=== PATIENT | female | born 1955 | race Caucasian/White ===

== ENCOUNTER 2022-06-21 00:48 | Emergency (ER) | payer MEDICARE, SELFPAY ==
--- OUTSIDE RECORDS SUMMARY | 2022-06-21 01:18 | XMS_ITS | Continuity of Care Document ---
:1955 Author Organization [facility] Address [address] [place] [address]- Care Team Providers Name Role Phone Shante Lewis MD Primary Care Physician [phone] [id number] Date(s): 03/13/22 - 04/12/22 [facility] [address] [place], [place] [address] Allergies, Adverse Reactions, Alerts No Known Allergies Immunizations Given and Recorded Vaccine Date Status Refusal Reason tetanus-diphtheria toxoids (Td) 11/12/05 Given Medications Celexa 10 mg oral tablet 1 tablet = 10 mg, By Mouth, Daily, # 30 tablet, 0 Refills, Maintenance, 01/04/14 9:57:31, Tablet Start Date: 01/04/14 Status: Orderedlevothyroxine 100 mcg (0.1 mg) oral capsule 1, By Mouth, Daily, 30, 1, 1, 11/03/07 13:11:26, Print RUFINO Number, [id number], Constant Indicator Start Date: 11/03/07 Stop Date: 01/02/08 Status: OrderedMedrol Dosepak 4 mg oral tablet 1 pack/packet, By Mouth, Once, # 21 tablet, 0 Refills, Soft Stop, 03/26/14 9:07:27, Tablet, 1 pack/packet By Mouth Once Start Date: 03/26/14 Status: OrderedMedrol Dosepak 4 mg oral tablet 1 pack/packet, By Mouth, Once, # 21 tablet, 0 Refills, Soft Stop, 03/02/14 9:10:46, Tablet Start Date: 03/02/14 Status: Ordered Problem List Condition Confirmation Course Effective Dates Status Health Stat us Informant Depression Confirmed Active Hypothyroidism Confirmed Active Migraine Confirmed Active Social History Social History Type Response Smoking Status Former smoker entered on: 03/26/14 Sex Patient Care team information PersonnelName: Shante Lewis MD Address: Address: [address] [place] [id number]
--- OUTSIDE RECORDS SUMMARY | 2022-06-21 01:18 | XMS_ITS | Continuity of Care Document ---
:1955 Author Organization [facility] Address [address] [place] [address], [address] [address]- Care Team Providers Name Role Phone Debbie BALDWIN, Shante Blanchard Primary Care Physician Encounter 07/09/21 - 07/16/21 [facility] [address], [address] [address] Attending Physician: Chelo Perez MD Admitting Physician: Chelo Perez MD Referring Physician: Chelo Perez MD Allergies, Adverse Reactions, Alerts Substance Reaction Severity Status NKA Active Immunizations Given and Recorded Vaccine Date Status Refusal Reason tetanus-diphtheria toxoids (Td) 11/12/05 Given Medications Celexa 10 mg oral tablet 1 tablet = 10 mg, By Mouth, Daily, # 30 tablet, 0 Refills, Maintenance, 01/04/14 9:57:31, Tablet Start Date: 01/04/14 Status: Orderedlevothyroxine 100 mcg (0.1 mg) oral capsule 1, By Mouth, Daily, 30, 1, 1, 11/03/07 13:11:26, Print RUFINO Number, [id number], Constant Indicator Start Date: 11/03/07 Stop Date: 01/02/08 Status: OrderedMedrol Dosepak 4 mg oral tablet 1 pack/packet, By Mouth, Once, # 21 tablet, 0 Refills, Soft Stop, 03/26/14 9:07:27, Tablet, 1 pack/packet By Mouth Once Start Date: 03/26/14 Status: OrderedMedrol Dosepak 4 mg oral tablet 1 pack/packet, By Mouth, Once, # 21 tablet, 0 Refills, Soft Stop, 03/02/14 9:10:46, Tablet Start Date: 8/29/14 Status: Ordered Problem List Condition Effective Dates Status Health Status Informant Depression(Confirmed) Active Hypothyroidism(Confirmed) Active Migraine(Confirmed) Active Social History Social History Type Response Smoking Status Former smoker entered on: 03/26/14 Sex
--- OUTSIDE RECORDS SUMMARY | 2022-06-21 01:18 | XMS_ITS | Continuity of Care Document ---
:1955 Author Organization [facility] Address [address] [place] [address]- Care Team Providers Name Role Phone Shante Lewis MD Primary Care Physician Encounter [facility] Date(s): 05/08/22 - 05/15/22 [facility] [address] [place] [address]- Encounter Diagnosis Major depressive disorder in partial remission (Discharge Diagnosis) - 05/08/22 Mild intermittent asthma (Discharge Diagnosis) - 05/08/22 Allergic rhinitis (Discharge Diagnosis) - 05/08/22 Gastroesophageal reflux disease without esophagitis (Discharge Diagnosis) - 05/08/22 Osteopenia (Discharge Diagnosis) - 05/08/22 Attending Physician: Shante Lewis MD Allergies, Adverse Reactions, Alerts No Known Allergies Immunizations Given and Recorded Vaccine Date Status Refusal Reason tetanus-diphtheria toxoids (Td) 05/08/22 Given tetanus-diphtheria toxoids (Td) 11/12/05 Given tetanus-diphtheria toxoids (Td) 07/05/05 Recorded pneumococcal 23-valent vaccine 05/08/22 Given influenza virus vaccine, inactivated 03/17/22 Recorded influenza virus vaccine, inactivated 03/26/21 Recorded influenza virus vaccine, inactivated 03/27/20 Recorded influenza virus vaccine, inactivated 04/05/19 Recorded influenza virus vaccine, inactivated 03/25/18 Recorded influenza virus vaccine, inactivated 05/07/17 Recorded influenza virus vaccine, inactivated 04/24/17 Recorded influenza virus vaccine, inactivated 04/16/16 Recorded influenza virus vaccine, inactivated 04/18/13 Recorded influenza virus vaccine, inactivated 04/27/08 Recorded [id number] bivalent booster vax 03/17/22 Recorde d SARS-CoV-2 (COVID-19) mRNA-1273 vaccine 10/09/21 Recorded SARS-CoV-2 (COVID-19) mRNA-1273 vaccine 05/05/21 Recorded SARS-CoV-2 (COVID-19) mRNA-1273 vaccine 10/21/20 Recorded SARS-CoV-2 (COVID-19) mRNA-1273 vaccine 09/23/20 Recorded pneumococcal 13-valent vaccine 04/16/21 Recorded zoster vaccine, inactivated 07/02/20 Recorded zoster vaccine, inactivated 03/27/20 Recorded Zoster Vaccine Live 07/02/16 Recorded tetanus/diphtheria/pertussis, acel(Tdap) 06/15/12 Recorde d Medications Albuterol (Eqv-ProAir HFA) Inhalation, Every 6 hours, 0 Refills, Maintenance, 05/08/22 9:53:00 EDT, Partial fill upon patient request if the prescription is for a schedule II opioid drug. Start Date: 05/08/22 Status: OrderedCelexa 10 mg oral tablet 1 tablet = 10 mg, By Mouth, Daily, # 30 tablet, 0 Refills, Maintenance, 01/04/14 9:57:31, Tablet Start Date: 01/04/14 Status: Orderedlevothyroxine 100 mcg (0.1 mg) oral capsule 1, By Mouth, Daily, 30, 1, 1, 11/03/07 13:11:26, Print RUFINO Number, [id number], Constant Indicator Start Date: 11/03/07 Stop Date: 01/02/08 Status: OrderedLorazepam 0 Refills, Maintenance, 05/08/22 9:53:00 EDT, Partial fill upon patient request if the prescription is for a schedule II opioid drug. Start Date: 05/08/22 Status: OrderedLORazepam 0.5 mg oral tablet 1 tablet = 0.5 mg, By Mouth, 2 times a day, PRN as needed for anxiety, 0 Refills, Maintenance, 05/08/22 9:58:00 EDT, Tablet, Partial fill upon patient request if the prescription is for a schedule II opioid drug. Start Date: 05/08/22 Status: OrderedMedrol Dosepak 4 mg oral tablet 1 pack/packet, By Mouth, Once, # 21 tablet, 0 Refills, Soft Stop, 03/26/14 9:07:27, Tablet, 1 pack/packet By Mouth Once Start Date: 03/26/14 Status: OrderedMedrol Dosepak 4 mg oral tablet 1 pack/packet, By Mouth, Once, # 21 tablet, 0 Refills, Soft Stop, 03/02/14 9:10:46, Tablet Start Date: 03/02/14 Status: Orderedmeloxicam 15 mg oral tablet 1 tablet = 15 mg, By Mouth, Daily, # 30 tablet, 0 Refills, Maintenance, 05/08/22 9:58:00 EDT, Tablet, Partial fill upon patient request if the prescription is for a schedule II opioid drug. Start Date: 05/08/22 Status: OrderedSertraline By Mouth, Daily, 0 Refills, Maintenance, 05/08/22 9:53:00 EDT, Partial fill upon patient request if the prescription is for a schedule II opioid drug. Start Date: 05/08/22 Status: Orderedsertraline 50 mg oral tablet 1 tablet = 50 mg, By Mouth, Daily, # 30 tablet, 0 Refills, Maintenance, 05/08/22 9:58:00 EDT, Tablet, Partial fill upon patient request if the prescription is for a schedule II opioid drug. Start Date: 05/08/22 Status: OrderedSynthroid 0.088 mg oral tablet 1 tablet = 88 mcg, By Mouth, Daily, # 30 tablet, 0 Refills, Maintenance, 05/08/22 9:58:00 EDT, Tablet, Partial fill upon patient request if the prescription is for a schedule II opioid drug. Start Date: 05/08/22 Status: Ordered Problem List Condition Confirmation Course Effective Dates Status Health I nformant Status Carotid bruit Confirmed 02/06/15 Active COVID-19 Confirmed 08/07/20 Active Depression Confirmed Active Depressive disorder Confirmed 04/28/08 Active Family history of Confirmed 04/28/08 Active kidney disease Gastroesophageal Confirmed 11/08/17 Active reflux disease without esophagitis Hypothyroidism Confirmed Active Hypothyroidism Confirmed 04/28/08 Active Migraine Confirmed Active Mild intermittent Confirmed 04/27/20 Active asthma Obese class I Confirmed Active Diagnosis Diagnosis Type Effective Health Clinical Informant Dates Status Service Major depressive Discharge 05/08/22 disorder in partial Diagnosis remission Allergic rhinitis Discharge 05/08/22 Diagnosis Gastroesophageal Discharge 05/08/22 reflux disease without Diagnosis esophagitis Osteopenia Discharge 05/08/22 Diagnosis Mild intermittent Discharge 05/08/22 asthma Diagnosis Vital Signs Most recent to oldest [Reference Range]: 1 Height 162.56 cm (05/08/22 9:47 AM) Weight 85.2 kg (05/08/22 9:47 AM) Oxygen Saturation [94-100 %] 97 % (05/08/22 9:47 AM) Pulse Rate [55-90 bpm] 85 bpm (05/08/22 9:47 AM) Body Mass Index [18.5-24.99 kg/m2] 32.24 kg/m2 *>HHI* (05/08/22 9:47 AM) Blood Pressure [90-138/55-84 mm Hg] 107/72 mm Hg (05/08/22 9:47 AM) Blood pressure sites Arm, right (05/08/22 9:47 AM) Social History Social History Type Response Smoking Status Former smoker entered on: 03/26/14 Sex Note Paty Hillman: PERFORM, SIGN, VERIFY Event Display: Patient Education/Instruction Authored Date: [id number] [facility] Clinical Summary Name STEPHEN VILLAVICENCIO Age 66 Years 1955 PCP Debbie BALDWIN, Shante Blanchard PCP Visit Date 05/08/2022 09:43:00 Additional Instructions: Scheduled Appointments?? Future Appointments ?No Future Appointments Scheduled Follow-Up Instructions ?? Diagnosis Depression, unspecified; Hypothyroidism, unspecified Medications: Please continue your medications until treatment is completed or stopped by your provider. Discuss any questions related to medications with your provider. Medications to Continue with No Changes These medications were not printed or sent to your pharmacy Albuterol (Albuterol (Eqv-ProAir HFA)) Inhalation every 6 hours. Next Dose: Citalopram (Celexa 10 mg oral tablet) 1 tab(s) Oral Daily. Next Dose: Levothyroxine (levothyroxine 100 mcg (0.1 mg) oral capsule) 1 Oral Daily for 30 Days. Refills: 1. Next Dose: Levothyroxine (Synthroid 0.088 mg oral tablet) 1 tab(s) Oral Daily. Next Dose: Lorazepam Next Dose: Lorazepam (LORazepam 0.5 mg oral tablet) 1 tab(s) Oral twice a day as needed as needed for anxiety. Next Dose: Meloxicam (meloxicam 15 mg oral tablet) 1 tab(s) Oral Daily. Next Dose: MethylPREDNISolone (Medrol Dosepak 4 mg oral tablet) 1 pack/packet Oral once. Refills: 0. Next Dose: MethylPREDNISolone (Medrol Dosepak 4 mg oral tablet) 1 pack/packet Oral once. Refills: 0. Next Dose: Sertraline Oral Daily. Next Dose: Sertraline (sertraline 50 mg oral tablet) 1 tab(s) Oral Daily. Next Dose: Allergy Info:?? NKA Medications Given This Visit Medication Dose Route Pneumococcal 23-Valent Vaccine (pneumococcal 23-valent (Adult) vacc) 0.5 mL Intramuscular Future Orders ?No future orders Vital Signs Height 162.56 cm Weight 85.2 kg BMI 32.24 kg/m2 Blood Pressure 107 mm Hg/72 mm Hg Temperature Pulse Rate 85 bpm Respiratory Rate 02 Sat Mode of Delivery 97 %/ You can now view a summary of your hospital visit from the comfort of your home through a free online portal called [email or web address]. [email or web address] is a website that allows you to securely view yourmedical information including discharge summary, medications and follow-up visits. ??You can also send a secure electronic message to your doctor???s office to request appointments, renew medications or just ask a question. You can enroll at [email or web address] or register during your next office visit. Disclaimer:?? The information provided is of a general nature and is intended to be used in conjunction with the recommendations and advice of your health care practitioner. ??Every effort has been made to ensure that the information provided is accurate and complete at the time it is provided to you however, as your needs change, or, as new ??information becomes available, different or additional instructions may be required. If you have questions, please consult with your primary care provider or pharmacist, as appropriate.??This information is not intended to serve as substitution for assessment and evaluation by a qualified health care provider. If you do not have a primary care provider, you may find a [facility] provider by calling [facility] at [phone]. For information about the plan of care including goals and instructions for your diagnosis, please see the patient education orders section of this document. Patient Education Materials?? The content of this educational material or handout may have been modified, supplemented, or adaptedfrom its original content and format to support your individualized medical care. Patient Care team information Care Team PersonnelName: Shante Lewis MD Position: [facility] Primary Care Physician Member Role: PCP Address: Address: [address] [place] [address]- Care Team Related PersonsName: EDITH VILLAVICENCIO Address: home [address] [address]
--- OUTSIDE RECORDS SUMMARY | 2022-06-21 01:18 | XMS_ITS | Continuity of Care Document ---
:1955 Author Organization [facility] Address [address] [place] [address]- Care Team Providers Name Role Phone Shante Lewis MD Primary Care Physician [phone] Encounter [facility] Date(s): 05/05/22 - 06/06/22 [facility] [address] [place] [address]- Attending Physician: Shante Lewis MD Allergies, Adverse [...] Recorded influenza virus vaccine, inactivated 04/27/08 Recorded [id number] bivalent booster vax 03/17/22 Recorde d SARS-CoV-2 [...] 1, 1, 11/03/07 13:11:26, Print RUFINO Number, [id number], Constant Indicator Start Date: 11/03/07 Stop Date: [...] Active asthma Obese class I Confirmed Active Social History Social History Type Response Smoking Status Former smoker entered on: 03/26/14 Sex Patient Care team information Care Team PersonnelName: Shante Lewis MD Position: [facility] Primary Care Physician Member Role: PCP Address: [facility] [place] [address]- Care Team Related PersonsName: VILLAVICENCIOEDITH Address: home [address] [address]
--- OUTSIDE RECORDS SUMMARY | 2022-06-21 01:18 | XMS_ITS | Continuity of Care Document ---
:1955 Author Organization [facility] Address [address] [place] [address]- Care Team Providers Name Role Phone Debbie BALDWIN, Shante Blanchard Primary Care Physician [phone] Encounter [facility] Date(s): 05/05/22 - 06/04/22 [facility] [address] [place], [place] [address] Allergies, Adverse Reactions, Alerts No Known [...] Recorded influenza virus vaccine, inactivated 04/27/08 Recorded [id number] bivalent booster vax 03/17/22 Recorde d SARS-CoV-2 [...] 1, 1, 11/03/07 13:11:26, Print RUFINO Number, [id number], Constant Indicator Start Date: 11/03/07 Stop Date: [...] Care Team PersonnelName: Shante Lewis MD Position: [facility] Primary Care Physician Member Role: PCP Address: Address: [address] [place] [address]- Care Team Related PersonsName: EDITH VILLAVICENCIO Address: home [address] [address]
--- OUTSIDE RECORDS SUMMARY | 2022-06-21 01:18 | XMS_ITS | Continuity of Care Document ---
:1955 Author Organization [facility] Address [address] [place] [address], [address] [address]- Care Team Providers Name Role Phone Debbie BALDWIN, Shante Blanchard Primary Care Physician Encounter 06/24/20 - 07/01/20 [facility] [address], [address] [address] Attending Physician: Chelo Perez MD Admitting [...] 1, 1, 11/03/07 13:11:26, Print RUFINO Number, [id number], Constant Indicator Start Date: 11/03/07 Stop Date: [...] Date: 03/02/14 Status: Ordered Problem List Condition Effective Dates Status Health Status Informant Depression(Confirmed) Active Hypothyroidism(Confirmed) Active Migraine(Confirmed) Active Social History Social History Type Response Smoking Status Former smoker entered on: 03/26/14 Sex
== END 2022-06-21 02:36 | disposition left against medical advice (07) ==
PROVIDERS: Emergency Provider Emergency Medicine; PCP Pediatrics
DX: M79.646 Pain in unspecified finger(s) (principal)

== ENCOUNTER 2023-03-17 09:44 | Outpatient (AMB) | payer MEDICARE, SELFPAY ==
--- NOTE | 2023-03-17 09:53 | A.OFFVIS_ITS ---
Intake Vital Signs 03/17/23 09:54 Height 5 ft 4 in Weight 187 lb BMI 32.1 BP 116/74 Pulse 84 Pulse Source Pulse Oximeter Pulse Oximetry (%) 98 Oxygen Delivery Method Room Air Intake Visit Reasons: Chronic Bronchitis Clinical Research Nurse Required: No Crew Team Member: Crew Team Member offered & declined Accompanied by: Self / Same As Patient Allergies No Known Allergies Allergy (Verified 03/17/23 09:55) Medication List - Last Reconciled 03/17/23 by Letitia Anguiano LPN albuterol sulfate 90 mcg/actuation 2 puffs inhalation Q6H PRN cetirizine (Zyrtec) 10 mg PO DAILY PRN levothyroxine 88 mcg PO DAILY prednisone 40 mg PO DAILY sertraline 75 mg PO DAILY HPI Chronic Bronchitis HPI Details Vandana is a very pleasant 67 year old female, former smoker with a 10+ pack year history, quit 20 years ago, with underlying asthma. She was referred by PCP for pulmonary evaluation for chronic bronchitis. Over time, she reports worsening dyspnea with moderate exertion, such as hills and stairs. She reports having bronchitis 1-2 times per year for many years but after an episode in November 2021, she has had more episodes that have lasted longer. Her symptoms resolved after prednisone, albuterol and symbicort. She last had bronchitis two weeks ago with cough and wheezing, resolving with prednisone. She also reports significant allergy symptoms this time of year, with post nasal drip and itchy throat/eyes which she takes a daily antihistamine. She is unsure if she had asthma as a child but reports significant seasonal allergies and had allergen immunotherapy as a child. She reports mother with history of acute interstitial pneumonia, otherwise no pertinent family history. She denies any occupational exposures. Of note, she recently received her RSV and influenza vaccines. [facility] Social History (Updated 03/17/23 @ 09:57 by Letitia Anguiano LPN) Patient Tobacco Use Status: Former Tobacco user Tobacco use type: Cigarette Cigarette Packs Per Day: 0.5 Cigarettes Per Day: 10 Years Smoked: 20 Review of Systems Const Denies chills, Denies excessive sweating, Denies fever(s), Denies headache(s) and Denies night sweats Eyes Denies dry eyes, Denies irritation and Reports itchy eyes ENT Reports Normal hearing present, Denies headache(s), Denies nasal congestion, Denies nasal discharge, Denies post nasal drip and Denies sore throat Card Denies chest pain, Denies chest pain at rest, Denies chest pain with activity, Denies claudication, Denies leg edema, Denies orthopnea and Denies paroxysmal nocturnal dyspnea Resp Denies chest congestion, Denies excessive phlegm production, Denies pain on inspiration, Denies pain with cough and Denies stridor Musc Denies myalgias Neuro Reports Normal hearing present and Denies headache(s) Endo Denies excessive sweating Joe/Lymph Denies lymphadenopathy Aller/Immun Reports itchy eyes and Denies seasonal rhinorrhea Physical Exam Vital Signs: Last Vital Signs Pulse 84 03/17/23 09:54 BP 116/74 03/17/23 09:54 Pulse Ox 98 03/17/23 09:54 Oxygen Delivery Method Room Air 03/17/23 09:54 BMI result Body Mass Index 32.1 Const General: cooperative, healthy appearing, comfortable, no acute distress, well developed and alert Orientation/consciousness: patient oriented x3 Limitations: no limitations HEENT Head: Yes normal to inspection, Yes normocephalic and Yes atraumatic Ears: hearing grossly normal bilaterally and external ears normal Eyes General: appearance normal, both eyes and all related structures Eyelids: Yes eyelids normal Sclerae: sclerae normal EOM: EOMs intact bilaterally Neck Neck: Yes normal visual inspection and Yes no lymphadenopathy Lymphatic: no lymphadenopathy noted Chest Chest palpation & inspection: normal inspection of the chest Resp Effort & Inspection: normal respiratory effort, able to speak in complete sentences, no audible wheezes, no cough, no stridor, not tachypneic, no tripod positioning and no use of accessory muscles Auscultation: clear to auscultation bilaterally Cardio Jugular venous distension: no JVD Rate: regular rate Rhythm: regular rhythm Skin Other: warm, dry General skin exam: no rashes or lesions noted Neuro General: patient oriented x3 Cranial nerves: Yes Normal hearing present Cognition (Neuro): normal cognition Gait exam (Neuro): Normal gait present Extrem General: Yes normal to inspection, Yes capillary refill normal, Yes no clubbing, cyanosis or edema and Yes no pedal edema Psych Appearance: grossly normal and well kempt Speech and movement: Normal speech and movement present and Clear speech present Affect: normal affect Attitude: cooperative Thought process: Normal thought process present Thought content: Normal thought content present Insight: Good insight present (Psych) Judgement: Good judgement present (Psych) Assessment & Plan Assessment & Plan (1) Asthma: Code(s): J45.909 - Unspecified asthma, uncomplicated (2) Chronic bronchitis: Code(s): J42 - Unspecified chronic bronchitis (3) Environmental allergies: Code(s): Z91.09 - Other allergy status, other than to drugs and biological substances (4) Personal history of tobacco use: Code(s): Z87.891 - Personal history of nicotine dependence Plan Vandana presents for pulmonary evaluation of chronic bronchitis and asthma. Will send for PFT and labs to thoroughly assess. Prior CXR unremarkable, will send for chest CT given chronic cough and remote smoking history. Will empirically trial Breo. Inhaler technique reviewed and educated on importance of oral hygiene. Patient aware if insurance does not cover inhaler to contact the office. All questions were answered and patient is in agreement of plan. Will follow up in 6 weeks to review results and assess response to Breo. Orders: Orders Rast Allergen Today J45.909 - Unspecified asthma, uncomplicated, Z91.09 - Other allergy status, other than to drugs and biological substances Complete Blood Count Auto Diff Today Z91.09 - Other allergy status, other than to drugs and biological substances PFT pulmonary function test Today J45.909 - Unspecified asthma, uncomplicated CT chest wo IV con Today J42 - Unspecified chronic bronchitis, R06.09 - Other forms of dyspnea Medications: New fluticasone furoate-vilanterol 100-25 mcg/dose (Breo Ellipta) 1 inh inhalation DAILY 60 ea 3RF Coding Level of Care Code New Pt Level 4 (27901) Diagnoses Asthma J45.909 Chronic bronchitis J42 Environmental allergies Z91.09 Personal history of tobacco use Z87.891
[2023-03-17 09:54] VITALS: BP 116/74; PULSE 84; O2SAT 98; BMI 32.1
== END 2023-03-17 10:34 | disposition home or self-care (01) ==
LOC: HO.HPSW 09:44
PROVIDERS: PCP Pediatrics; Referring Provider Nurse Practitioner Family; Visit Provider Nurse Practitioner Family
DX: J45.909 Unspecified asthma, uncomplicated (principal); J42 Unspecified chronic bronchitis; Z91.09 Other allergy status, other than to drugs and biological substances; Z87.891 Personal history of nicotine dependence
CPT/HCPCS: 99202; 99204

== ENCOUNTER 2023-03-17 10:32 | Outpatient (REF) | payer MEDICARE, SELFPAY | END 2023-03-17 10:33 | disposition home or self-care (01) | LOC: HO.WFDLDS 10:32 | PROVIDERS: Visit Provider Nurse Practitioner Family | DX: J45.909 Unspecified asthma, uncomplicated (principal); Z91.09 Other allergy status, other than to drugs and biological substances | CPT/HCPCS: 36415; 82785; 86003; 99202 ==

== ENCOUNTER 2023-04-19 07:58 | Outpatient (REF) | payer MEDICARE, SELFPAY ==
--- NOTE | ~2023-04-19 | CT_ITS ---
EXAMINATION: CT CHEST WITHOUT CONTRAST CLINICAL INFORMATION: Chronic bronchitis. COMPARISON: None available. TECHNIQUE: Multidetector volumetric CT imaging of the chest was done. Axial MIP volume rendering provided. Sagittal and coronal reformatted images were obtained. This CT examination was performed using dose optimization techniques as appropriate, variously including the following: *Automated exposure control *Adjustment of mA and/or kV according to patient size (this includes techniques or standardized protocols for targeted exams where dose is matched to indication/reason for exam; i.e. extremities or head) *Use of iterative reconstruction technique DLP: 149 mGy-cm FINDINGS: LUNGS: Biapical pleural parenchymal scarring. Mild diffuse airway wall thickening consistent with the history of airways disease. No air trapping evident. There are scattered micronodules. No dominant morphologically suspicious nodule. MEDIASTINUM: No adenopathy. No pericardial effusion. Small hiatal hernia and mildly thickened distal esophagus. CORONARY ARTERY CALCIFICATION: None visualized on this study. PLEURA: There is no pleural effusion. No pleural mass or thickening. AXILLA: No lymphadenopathy. UPPER ABDOMEN: Small simple cyst in the right kidney. No follow-up imaging is recommended. OSSEOUS STRUCTURES: Mild degenerative changes in the spine. CT/CT chest wo IV con IMPRESSION: Mild diffuse airway wall thickening consistent with chronic airways disease. No significant air trapping. No evidence of interstitial lung disease. Scattered micronodules. No routine follow-up imaging is recommended per Fleischner Society Guidelines. Small hiatal hernia with mildly thickened distal esophagus may reflect esophagitis. Recommend correlation with endoscopy. Fleischner guidelines were followed.
--- NOTE | 2023-04-19 09:43 | PFT_ITS ---
SPIROMETRY: Forced vital capacity 94%, FEV1 97%. FEV1/FVC ratio is 72. [id number] is 108% and MVV is 77%. POSTBRONCHODILATOR THERAPY: There is no significant change. LUNG VOLUMES: Total lung capacity 94%. Residual volume 78%. Diffusion capacity 72%. CONCLUSION: Normal pulmonary function test. No evidence of obstructive or restrictive pulmonary disorder. MD OLGA Ortega/MODL / [id number]
== END 2023-04-19 07:59 | disposition home or self-care (01) ==
LOC: HO.CT 07:58
PROVIDERS: PCP Pediatrics; Visit Provider Nurse Practitioner Family
DX: J42 Unspecified chronic bronchitis (principal); R06.09 Other forms of dyspnea; J45.909 Unspecified asthma, uncomplicated
CPT/HCPCS: 71250; 94010; 94727; 94729

== ENCOUNTER → 2023-04-19 09:43 | Outpatient (BNV) | payer MEDICARE, SELFPAY | PROVIDERS: PCP Pediatrics; Visit Provider Internal Medicine | DX: J42 Unspecified chronic bronchitis (principal) | CPT/HCPCS: 94060; 94727; 94729 ==

== ENCOUNTER 2023-04-28 10:32 | Outpatient (AMB) | payer MEDICARE, SELFPAY ==
[2023-04-28 10:49] VITALS: BP 110/60; PULSE 68; O2SAT 97; BMI 31.2
--- NOTE | 2023-04-28 10:49 | MHC.OFFVIS ---
Intake Vital Signs 04/28/23 10:49 Height 5 ft 4 in Weight 182 lb BMI 31.2 BP 110/60 Blood Pressure Location Rt brachial Position Sitting Pulse 68 Pulse Source Pulse Oximeter Pulse Oximetry (%) 97 Oxygen Delivery Method Room Air Intake Visit Reasons: f/u after pft & ct Pyrotechnician Required: No Operations Support Analyst: Operations Support Analyst offered & declined Accompanied by: Self / Same As Patient Allergies No Known Allergies Allergy (Verified 04/28/23 10:55) Medication List - Last Reconciled 04/28/23 by Letitai Anguiano LPN albuterol sulfate 90 mcg/actuation 2 puffs inhalation Q6H PRN cetirizine (Zyrtec) 10 mg PO DAILY PRN fluticasone furoate-vilanterol 100-25 mcg/dose (Breo Ellipta) 1 inh inhalation DAILY levothyroxine 88 mcg PO DAILY sertraline 75 mg PO DAILY HPI f/u after pft & ct HPI Details Vandana is a very pleasant 67 year old female, former smoker with a 10+ pack year history, quit 20 years ago, with underlying asthma and environmental allergies. Today she presents to review results of RAST, PFT, Chest CT and response to inhaler. At the last visit, she was started on Breo and reports complete resolution of symptoms. She states she can exert herself and no longer has dyspnea. Unfortunately, since starting the Breo she has developed hoarseness and throat irritation despite good oral hygiene. [facility] Social History (Updated 04/28/23 @ 10:56 by Letitia Anguiano LPN) Patient Tobacco Use Status: Former Tobacco user Tobacco use type: Cigarette Cigarette Packs Per Day: 0.5 Cigarettes Per Day: 10 Years Smoked: 20 Smoked in Last 30 Days: No Review of Systems Const Denies chills, Denies excessive sweating, Denies fever(s), Denies headache(s) and Denies night sweats Eyes Denies dry eyes, Denies irritation and Reports itchy eyes ENT Reports Normal hearing present, Denies headache(s), Denies nasal congestion, Denies nasal discharge, Denies post nasal drip and Denies sore throat Card Denies chest pain, Denies chest pain at rest, Denies chest pain with activity, Denies claudication, Denies leg edema, Denies orthopnea and Denies paroxysmal nocturnal dyspnea Resp Denies chest congestion, Denies excessive phlegm production, Denies pain on inspiration, Denies pain with cough and Denies stridor Musc Denies myalgias Neuro Reports Normal hearing present and Denies headache(s) Endo Denies excessive sweating Joe/Lymph Denies lymphadenopathy Aller/Immun Reports itchy eyes and Denies seasonal rhinorrhea Physical Exam Vital Signs: Last Vital Signs Pulse 68 04/28/23 10:49 BP 110/60 04/28/23 10:49 Pulse Ox 97 04/28/23 10:49 Oxygen Delivery Method Room Air 04/28/23 10:49 BMI result Body Mass Index 31.2 Const General: cooperative, healthy appearing, comfortable, no acute distress, well developed and alert Orientation/consciousness: patient oriented x3 Limitations: no limitations HEENT Head: Yes normal to inspection, Yes normocephalic and Yes atraumatic Ears: hearing grossly normal bilaterally and external ears normal Eyes General: appearance normal, both eyes and all related structures Eyelids: Yes eyelids normal Sclerae: sclerae normal EOM: EOMs intact bilaterally Neck Neck: Yes normal visual inspection and Yes no lymphadenopathy Lymphatic: no lymphadenopathy noted Chest Chest palpation & inspection: normal inspection of the chest Resp Effort & Inspection: normal respiratory effort, able to speak in complete sentences, no audible wheezes, no cough, no stridor, not tachypneic, no tripod positioning and no use of accessory muscles Auscultation: clear to auscultation bilaterally Cardio Jugular venous distension: no JVD Rate: regular rate Rhythm: regular rhythm Skin Other: warm, dry General skin exam: no rashes or lesions noted Neuro General: patient oriented x3 Cranial nerves: Yes Normal hearing present Cognition (Neuro): normal cognition Gait exam (Neuro): Normal gait present Extrem General: Yes normal to inspection, Yes capillary refill normal, Yes no clubbing, cyanosis or edema and Yes no pedal edema Psych Appearance: grossly normal and well kempt Speech and movement: Normal speech and movement present and Clear speech present Affect: normal affect Attitude: cooperative Thought process: Normal thought process present Thought content: Normal thought content present Insight: Good insight present (Psych) Judgement: Good judgement present (Psych) Results Reviewed Results Reviewed: [address] [address] [address] Scan Report Signed Patient: Vandana Cardenas MR#: [id number] : 1955 Acct:[id number] Age/Sex: 67 / F ADM Date: 04/19/23 Loc: HO.CT Attending Dr: Thalia Randolph NP Ordering Physician: Thalia Randolph NP Date of Service: 04/19/23 Procedure(s): CT chest wo IV con Accession Number(s): [id number] cc: SAPNA FISHER MD; Thalia Randolph NP~ EXAMINATION: CT CHEST WITHOUT CONTRAST CLINICAL INFORMATION: Chronic bronchitis. COMPARISON: None available. TECHNIQUE: Multidetector volumetric CT imaging of the chest was done. Axial MIP volume rendering provided. Sagittal and coronal reformatted images were obtained. This CT examination was performed using dose optimization techniques as appropriate, variously including the following: *Automated exposure control *Adjustment of mA and/or kV according to patient size (this includes techniques or standardized protocols for targeted exams where dose is matched to indication/reason for exam; i.e. extremities or head) *Use of iterative reconstruction technique DLP: 149 mGy-cm FINDINGS: LUNGS: Biapical pleural parenchymal scarring. Mild diffuse airway wall thickening consistent with the history of airways disease. No air trapping evident. There are scattered micronodules. No dominant morphologically suspicious nodule. MEDIASTINUM: No adenopathy. No pericardial effusion. Small hiatal hernia and mildly thickened distal esophagus. CORONARY ARTERY CALCIFICATION: None visualized on this study. PLEURA: There is no pleural effusion. No pleural mass or thickening. AXILLA: No lymphadenopathy. UPPER ABDOMEN: Small simple cyst in the right kidney. No follow-up imaging is recommended. OSSEOUS STRUCTURES: Mild degenerative changes in the spine. CT/CT chest wo IV con IMPRESSION: Mild diffuse airway wall thickening consistent with chronic airways disease. No significant air trapping. No evidence of interstitial lung disease. Scattered micronodules. No routine follow-up imaging is recommended per Fleischner Society Guidelines. Small hiatal hernia with mildly thickened distal esophagus may reflect esophagitis. Recommend correlation with endoscopy. Fleischner guidelines were followed. Assessment & Plan Assessment & Plan (1) Asthma: Code(s): J45.909 - Unspecified asthma, uncomplicated (2) Chronic bronchitis: Code(s): J42 - Unspecified chronic bronchitis (3) Environmental allergies: Code(s): Z91.09 - Other allergy status, other than to drugs and biological substances (4) Personal history of tobacco use: Code(s): Z87.891 - Personal history of nicotine dependence Plan Reviewed PFT which revealed no obstructive or restrictive defect and no response to bronchodilators. Lung volumes were normal with a slightly decreased DLCO of 72%. Chest CT reviewed which revealed scattered micronodules as well as findings suggestive of chronic airway disease. Reviewed RAST and patient with significant environmental allergies. Reviewed ways to minimize exposure as well as using antihistamine. Since the last visit she has been using Breo with complete resolution of symptoms, however she has developed throat irritation and hoarseness due to dry powder inhaler. Will switch to Advair HFA. Patient aware if insurance does not cover inhaler to contact the office. All questions were answered and patient is in agreement of plan. Medications: New fluticasone propion-salmeterol 115-21 mcg/actuation (Advair HFA) 2 puffs inhalation Q12H 1 ea 3RF Coding Level of Care Code Est Pt Level 4 (22189) Diagnoses Asthma J45.909 Chronic bronchitis J42 Environmental allergies Z91.09 Personal history of tobacco use Z87.891
== END 2023-04-28 13:02 | disposition home or self-care (01) ==
LOC: HO.HPSW 10:32
PROVIDERS: PCP Pediatrics; Visit Provider Nurse Practitioner Family
DX: J45.909 Unspecified asthma, uncomplicated (principal); J42 Unspecified chronic bronchitis; Z91.09 Other allergy status, other than to drugs and biological substances; Z87.891 Personal history of nicotine dependence
CPT/HCPCS: 99214

== ENCOUNTER → 2023-04-28 10:32 | Outpatient (BNVA) | payer MEDICARE, SELFPAY | PROVIDERS: PCP Pediatrics; Visit Provider Nurse Practitioner Family | DX: J45.909 Unspecified asthma, uncomplicated (principal); J42 Unspecified chronic bronchitis; Z91.09 Other allergy status, other than to drugs and biological substances; Z87.891 Personal history of nicotine dependence | CPT/HCPCS: 99212 ==